=== PATIENT | male | born 1980 ===

== ENCOUNTER 2023-11-20 15:03 | Outpatient (CLI) | payer OTHER, SELFPAY ==
--- NOTE | ~2023-11-20 | MR_ITS ---
MRI of the right ankle Clinical history: Achilles tendon rupture Technique: Coronal proton-density and proton-density fat-sat images, axial proton-density and proton- density fat-sat images, and sagittal proton-density and proton-density fat-sat images were acquired. Findings: Syndesmotic ligaments are intact. Anterior and posterior talofibular ligaments, and calcane ofibular ligament are intact. Deltoid ligament is intact. Medial flexor tendons, peroneal tendons, anterior extensor tendons are intact. There is complete rupt ure of the Achilles tendon from its distal insertion the calcaneus. Tendon is retracted tendon insert ion by approximately 5.5 cm. The distal tendon margin is hyperintense and minimally frayed. There is focal degenerative change of the anterior margin of the tibiotalar joint. Remaining joint sp aces are preserved. Bone marrow signals are essentially unremarkable. No significant joint effusion. Plantar fascia intact. Normal signal preserved in the sinus Tarsi. Impression: Complete rupture of the Achilles tendon from its calcaneal insertion, with retraction by 5.5 cm. Reviewed, dictated and finalized at location . [facility] Impression: Complete rupture of the Achilles tendon from its calcaneal insertion, with retr action by 5.5 cm.
== END 2023-11-20 15:04 ==
PROVIDERS: PCP Orthopaedic Surgery; Visit Provider Orthopaedic Surgery
DX: S86.011A Strain of right Achilles tendon, initial encounter (principal); X58.XXXA Exposure to other specified factors, initial encounter
CPT/HCPCS: 73721